=== PATIENT | male | born 1995 | race Hispanic/Latino ===

== ENCOUNTER 2019-09-10 21:36 | Emergency (ER) | payer BC ==
[~2019-09-10] VITALS: Ht 180.3 cm; Wt 108.9 kg
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
--- NOTE | 2019-09-11 00:04 | Diagnostic Imaging Report ---
SHOULDER LEFT COMPLETE - 2 views HISTORY: Pain COMPARISON: None available. IMPRESSION: Minimally displaced fracture of the mid left clavicle. No acute fracture or dislocation of the left shoulder joint. Signed by: Dr. Kamaljit Franco MD on 09/11/2019 12:01 AM
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
[2019-09-11 01:08] VITALS: BP 131/86
== END 2019-09-11 01:38 | disposition home or self-care (01) ==
LOC: ER 21:36
DX: S42.002A Fracture of unspecified part of left clavicle, initial encounter for closed fracture (principal); S00.81XA Abrasion of other part of head, initial encounter; S40.212A Abrasion of left shoulder, initial encounter; V18.0XXA Pedal cycle driver injured in noncollision transport accident in nontraffic accident, initial encounter; Y93.55 Activity, bike riding; Y92.488 Other paved roadways as the place of occurrence of the external cause
CPT/HCPCS: 71046; 99283